=== PATIENT | male | born 1950 | race Caucasian/White ===

== ENCOUNTER → 2017-03-10 | Outpatient (CLI) | payer MEDICARE, BC | LOC: SL 15:13 | PROVIDERS: ATTEND Family Medicine | DX: G47.33 Obstructive sleep apnea (adult) (pediatric) (principal) ==

== ENCOUNTER → 2017-07-30 | Outpatient (CLI) | payer MEDICARE, BC ==
--- NOTE | 2017-07-31 15:28 | US ---
EXAM DESCRIPTION: Soft Tissue,Head/Neck CLINICAL HISTORY: 66 years Male, THYROID NODULE COMPARISON: None. FINDINGS: The right lobe of the thyroid is 4.4 x 2.1 x 1.8 cm and the left lobe is 5.1 x 1.9 x 2.4 cm with the isthmus 4 mm in thickness. On the right posteriorly in the mid thyroid is a wider than tall 9 x 7 x 7 mm moderately hypoechoic nodule with internal specular echoes. Just anterior and inferior to this nodule is a mildly hypoechoic wider than tall 1.0 x 0.8 x 0.8 cm nodule. Inferiorly there is a moderately hypoechoic wider than tall 10 x 8 x 8 mm nodule in the lower pole. On the left in the lower pole is a partially cystic partially solid wider than tall 1.6 x 1.1 x 1.3 cm nodule. A tiny 5 mm hypoechoic nodule in the mid thyroid is noted. Within the isthmus on the left is a hypoechoic 1.8 x 1.0 x 1.0 cm nodule. The most worrisome nodule is the posteriorly positioned right middle lobe nodule only 9 mm in maximal diameter but with significant decreased echogenicity and specular internal echoes suggesting possible small calcifications. If possible consider fine-needle aspiration of this very small nodule. Additionally the larger left-sided isthmus nodule is heterogeneous with very slightly indistinct margins and questionably one or two small calcifications. Biopsy of this larger 1.8 x 1.0 cm nodule also recommended. IMPRESSION: Multinodular thyroid with two nodules involving each lobe and a larger nodule involving the left side of the isthmus. The most worrisome 9 mm right lobe midpole posteriorly positioned nodule and the larger isthmus nodule on the left side represent the two most worrisome nodules and should be considered for fine-needle aspiration. Electronically signed by: Reno Robledo MD 07/31/2017 3:26 PM CDT
== END ==
LOC: US 14:34
PROVIDERS: ATTEND Family Medicine
DX: E04.1 Nontoxic single thyroid nodule (principal)

== ENCOUNTER → 2017-08-04 | Outpatient (CLI) | payer MEDICARE, BC | END | disposition home or self-care (01) | LOC: GMAB 11:09 | PROVIDERS: ATTEND Family Medicine | DX: R97.20 Elevated prostate specific antigen [PSA] (principal) ==

== ENCOUNTER → 2017-09-10 | Outpatient (CLI) | payer MEDICARE, BC ==
--- NOTE | 2017-09-10 13:21 | MRI ---
Procedure: MR LUMBAR SPINE WITHOUT IV CONTRAST Exam Date: 09/10/2017 12:00 AM CDT Ordering Provider: MANE MCDONALD Clinical Indication: DISC DEGENERATION Comparison: None Technique: Multiplanar, multisequence MR images of the lumbar spine were obtained. Findings: No evidence of vertebral body compression deformity or acute fracture. No scoliotic curvature. Spinal cord terminates at the T12-L1 and is normal in signal morphology. Cauda equina separate appropriately. T12-L1: Unremarkable. L1-L2: Unremarkable. L2-L3: Broad-based disc bulge. Mild facet arthrosis. No stenosis. L3-L4: Right greater than left moderate facet arthrosis with ligamentum flavum hypertrophy. Broad-based disc bulge. No spinal canal stenosis yet there is mild bilateral neural foraminal stenosis. L4-L5: Broad-based disc bulge with mild facet arthrosis. No spinal canal stenosis yet there is mild bilateral neural foraminal stenosis. L5-S1: Circumferential disc bulge with subchondral cysts noted within the posterior aspect of S1. No focal disc protrusion. No spinal canal stenosis yet there is severe bilateral neural foraminal stenosis. Prevertebral and paravertebral soft tissues are unremarkable. Impression: Multilevel/multifactorial lumbar spondylosis as outlined above. Greatest degree of stenosis is at L5-S1. Electronically signed by: Xavier Kaye MD 09/10/2017 1:20 PM CDT
== END | disposition home or self-care (01) ==
LOC: MRI 14:25
PROVIDERS: ATTEND Family Medicine
DX: M51.36 Other intervertebral disc degeneration, lumbar region (principal)

== ENCOUNTER → 2017-10-26 | Outpatient (CLI) | payer MEDICARE, BC | END | disposition home or self-care (01) | LOC: GMAB 10:38 | PROVIDERS: ATTEND Family Medicine | DX: E04.1 Nontoxic single thyroid nodule (principal) ==

== ENCOUNTER → 2017-11-02 | Outpatient (CLI) | payer MEDICARE, BC | END | disposition home or self-care (01) | LOC: GMAB 08:56 | PROVIDERS: ATTEND Family Medicine | DX: E04.1 Nontoxic single thyroid nodule (principal) ==

== ENCOUNTER → 2017-12-09 | Outpatient (CLI) | payer MEDICARE, BC | LOC: GMAB 11:15 | PROVIDERS: ATTEND Family Medicine | DX: C73 Malignant neoplasm of thyroid gland (principal); R29.898 Other symptoms and signs involving the musculoskeletal system; R06.02 Shortness of breath; R20.2 Paresthesia of skin ==

== ENCOUNTER → 2017-12-11 | Outpatient (CLI) | payer MEDICARE, BC | LOC: GMAB 13:39 | PROVIDERS: ATTEND Family Medicine | DX: C73 Malignant neoplasm of thyroid gland (principal); E89.0 Postprocedural hypothyroidism ==

== ENCOUNTER → 2018-01-05 | Outpatient (CLI) | payer MEDICARE, BC ==
--- NOTE | 2018-01-05 09:59 | RAD ---
EXAM DESCRIPTION: Knee,Right Complete CLINICAL HISTORY: 67 years, Male, PAIN IN RIGHT KNEE COMPARISON: None TECHNIQUE: 4 views of the right knee FINDINGS: No fracture or dislocation. Bones appear osteopenic with prominent trabecular pattern. Narrowed of medial and lateral compartments on frontal view, especially laterally. Lucency in the lateral femoral condyle is seen consistent with subchondral degenerative cyst formation. Sclerosis and eburnation of the medial tibial plateau is present. Lateral view shows normal position of the patella with narrowing of the patellofemoral joint. Positive posterior patellar spurring is seen with spurring of the anterior femoral trochlea. No suprapatellar knee joint effusion. Normal contour of quadriceps and patellar tendons. Lateral tilt of the patella is noted without dislocation on patellar sunrise view. Prominent medial and lateral patellar spurring is seen with prominent anterior medial femoral trochlear osteophyte. IMPRESSION: Degenerative osteoarthrosis of the right knee. Electronically signed by: Lasha Harris MD 01/05/2018 9:58 AM [employer]
--- NOTE | 2018-01-05 10:01 | RAD ---
EXAM DESCRIPTION: Pelvis CLINICAL HISTORY: 67 years Male, PAIN IN RIGHT HIP COMPARISON: None. TECHNIQUE: Frontal x-ray view of the pelvis and proximal femurs FINDINGS: Degenerative disc space narrowing is noted at L5-S1 with spurring. SI joints and pubic symphysis appear well-preserved. Mild narrowing of the inferomedial aspect of the hip joints is present. No fracture or dislocation of the hips. Proximal femurs appear intact. IMPRESSION: Negative for fracture or dislocation. Electronically signed by: Lasha Harris MD 01/05/2018 10:00 AM [facility]
== END ==
LOC: RAD 08:45
PROVIDERS: ATTEND Orthopaedic Surgery
DX: M25.561 Pain in right knee (principal); M25.551 Pain in right hip

== ENCOUNTER → 2018-04-08 | Outpatient (CLI) | payer MEDICARE, BC | LOC: GMAB 14:35 | PROVIDERS: ATTEND Family Medicine | DX: C73 Malignant neoplasm of thyroid gland (principal); E89.0 Postprocedural hypothyroidism ==

== ENCOUNTER → 2018-07-12 | Outpatient (CLI) | payer MEDICARE, BC | LOC: GMAE 10:53 | PROVIDERS: ATTEND Family Medicine | DX: R94.5 Abnormal results of liver function studies (principal); R97.20 Elevated prostate specific antigen [PSA] ==

== ENCOUNTER → 2018-07-20 | Outpatient (CLI) | payer MEDICARE, BC ==
--- NOTE | 2018-07-20 10:35 | US ---
EXAM DESCRIPTION: Liver: ULTRASOUND. CLINICAL HISTORY: ABNORMAL RESULTS OF LIVER FUNCTION STUDIES COMPARISON: None. TECHNIQUE: Transabdominal scannin-dimensional and Doppler modes. FINDINGS: Gallbladder: Echogenic object on the wall measuring 4.5 mm. Mobile with patient change in position. No calcified stones or sludge. No fluid around the gallbladder. No wall thickening. 2.3 mm. Non-tender with transducer pressure. Common bile duct: caliber 3.9 mm within normal limits. Liver: Increased echogenicity; contour liver capsule smooth where seen. No fluid around the liver. Intrahepatic biliary ducts normal caliber. Doppler hepatopedal flow portal vein. 1.0 cm. Long axis right lobe 19.6 Pancreas: normal size and echogenicity. Duct not seen. Right kidney: long axis measures 10.7 cm. Normal Echogenicity. 2.6 x 2.1 cm cyst mid kidney. Second cyst with septation measures 3.5 x 2.9 cm. Normal cortical thickness. No hydronephrosis IMPRESSION: 1. Nonmobile polyp on the wall of the gallbladder. No stones or sludge. No wall thickening or fluid. Nontender. Normal caliber of the common bile duct. 2. Steatosis of the liver with normal ducts and vascularity. Smooth capsule with no fluid. Normal ultrasound of the pancreas. 3. 2 Cysts in the right kidney otherwise unremarkable. Electronically signed by: Manuelito Ibarra MD 07/20/2018 10:33 AM CDT
== END ==
LOC: US 09:00
PROVIDERS: ATTEND Family Medicine
DX: R94.5 Abnormal results of liver function studies (principal); K82.4 Cholesterolosis of gallbladder; K76.0 Fatty (change of) liver, not elsewhere classified; N28.1 Cyst of kidney, acquired

== ENCOUNTER → 2018-10-05 | Outpatient (CLI) | payer MEDICARE, BC | LOC: GMAE 14:28 | PROVIDERS: ATTEND Family Medicine | DX: C73 Malignant neoplasm of thyroid gland (principal); E89.0 Postprocedural hypothyroidism; R97.20 Elevated prostate specific antigen [PSA] ==

== ENCOUNTER → 2018-10-25 | Outpatient (CLI) | payer MEDICARE, BC ==
--- NOTE | 2018-10-25 08:53 | RAD ---
EXAM DESCRIPTION: Fingers,Left CLINICAL HISTORY: 67 years Male, PAIN IN LEFT FINGER RING DIGIT COMPARISON: None. FINDINGS: Three x-rays views of the left fourth digit show mild narrowing of the DIP and PIP joints. No fracture. No dislocation. Normal bony mineralization. No radiopaque foreign body. IMPRESSION: Negative for fracture. Electronically signed by: Lasha Harris MD 10/25/2018 8:51 AM [facility]
--- NOTE | 2018-10-25 08:56 | RAD ---
EXAM DESCRIPTION: Hand,Left 3 Views CLINICAL HISTORY: PAIN IN LEFT HAND COMPARISON: None Available. TECHNIQUE: AP, LATERAL, AND OBLIQUE FINDINGS: Three-view left hand shows no fracture or dislocation. Deformity of the fourth metacarpal is consistent with an old healed fracture. Mild degenerative narrowing of the DIP more than PIP joints. Moderate degenerative changes at the lateral carpus especially first carpal metacarpal joint. Flattened appearance of the head of the first metacarpal is seen with degenerative changes at the first metacarpal phalangeal joint and mild degenerative spurring of the interphalangeal joint of the thumb. No radiopaque foreign body. There is no radiopaque foreign body. IMPRESSION: Negative for fracture or dislocation. Electronically signed by: Lasha Harris MD 10/25/2018 8:54 AM [facility]
== END ==
LOC: RAD 07:54
PROVIDERS: ATTEND Orthopaedic Surgery
DX: M79.645 Pain in left finger(s) (principal); M79.642 Pain in left hand

== ENCOUNTER → 2019-09-27 | Outpatient (CLI) | payer MEDICARE, BC | LOC: GMAE 10:41 | PROVIDERS: ATTEND Family Medicine | DX: E03.9 Hypothyroidism, unspecified (principal); R97.20 Elevated prostate specific antigen [PSA]; I10 Essential (primary) hypertension; E78.2 Mixed hyperlipidemia ==

== ENCOUNTER → 2020-03-16 | Outpatient (CLI) | payer MEDICARE, BC | LOC: GMAE 12:12 | PROVIDERS: ATTEND Family Medicine | DX: M25.541 Pain in joints of right hand (principal); E03.8 Other specified hypothyroidism ==

== ENCOUNTER → 2020-03-26 | Outpatient (CLI) | payer MEDICARE, BC | LOC: GMAE 11:26 | PROVIDERS: ATTEND Family Medicine | DX: M25.542 Pain in joints of left hand (principal) ==

== ENCOUNTER → 2020-04-23 | Outpatient (CLI) | payer MEDICARE, BC ==
--- NOTE | 2020-04-23 08:55 | RAD ---
EXAM DESCRIPTION: Knee,Right Complete CLINICAL HISTORY: RT KNEE PAIN COMPARISON: None FINDINGS: 5 views of the right knee including standing neutral and flexion views. The lateral joint space loss is present with subchondral sclerosis, lucency and moderate size marginal osteophyte formations. Similar advanced joint space loss with subchondral sclerosis and cystlike formation is seen within the patellofemoral joint. Large marginal osteophyte formations of the patellofemoral joint. Bone density appears within normal limits. No acute fracture is demonstrated. Vascular calcifications are present. IMPRESSION: End-stage osteoarthritis of the right knee. Electronically signed by: Manuel Hutchinson MD 04/23/2020 8:54 AM CDT
--- NOTE | 2020-04-23 08:56 | RAD ---
EXAM DESCRIPTION: Pelvis CLINICAL HISTORY: HIP PAIN COMPARISON: 05 January 2018 TECHNIQUE: AP pelvis FINDINGS: Degenerative changes are observed in the lower lumbar spine. No pelvic or hip fracturing is detected. Phleboliths are observed in the left side the pelvis. IMPRESSION: Mild degenerative changes are observed. No fracturing is detected. Electronically signed by: Vitaliy Garg MD 04/23/2020 8:55 AM CDT
== END ==
LOC: RAD 07:44
PROVIDERS: ATTEND Orthopaedic Surgery
DX: M47.896 Other spondylosis, lumbar region (principal); M17.11 Unilateral primary osteoarthritis, right knee

== ENCOUNTER → 2020-09-23 | Outpatient (CLI) | payer MEDICARE, BC | LOC: GMAF 16:01 | PROVIDERS: ATTEND Nurse Practitioner Family | DX: J06.9 Acute upper respiratory infection, unspecified (principal); R06.00 Dyspnea, unspecified; R71.8 Other abnormality of red blood cells; R09.02 Hypoxemia ==

== ENCOUNTER 2020-09-25 08:20 | Emergency (ER) | payer MEDICARE, BC ==
--- NOTE | 2020-09-25 08:24 | ED.PDOC ---
History of Present Illness - General Time Seen by Provider: 09/25/20 08:22 Source: patient - History of Present Illness Initial Comments: 69 yo male with PMH of HTN who presents with chief complaint of vomiting and diarrhea. Reports onset of illness about 6 days ago and was diagnosed with COVID-19 2 days ago. Reports his was also recently ill with similar symptoms and also diagnosed with COVID-19. Patient reports mild illness last week with symptoms of body aches and generalized weakness and decreased appetite. Reports onset of vomiting and diarrhea yesterday. States that he had 3 episodes of nonbloody nonbilious emesis and 3 episodes of watery diarrhea yesterday. Additionally he has had 1 more episode of diarrhea this morning. Reports poor appetite and decreased p.o. intake. States he only had some fruit and juice yesterday. Reports symptoms as moderate severity. He has been taking Tylenol at home with little relief. Additionally reports subjective fevers. Denies chest pain, cough, dyspnea, abdominal pain, urinary symptoms, leg swelling, headache, sore throat. PCP is Dr. Lay. Allergies/Adverse Reactions: Allergies Penicillins Allergy (Verified 10/15/15 09:41) Home Medications: Ambulatory Orders Aspirin [Aspirin Adult Low Dose] 81 mg PO DAILY 10/15/15 Atorvastatin Calcium [Lipitor] 20 mg PO DAILY 10/15/15 Losartan Potassium & Hydrochlo [Losartan Potassium/Hydroc 100-12.5 mg] 1 tab PO DAILY 10/15/15 Meloxicam [Mobic] 15 mg PO DAILY 10/15/15 Azithromycin Tab [Zithromax Tab] 250 mg PO DAILY 4 Days #4 tab 09/25/20 Levothyroxine Sodium [Synthroid] 150 mcg PO DAILY 09/25/20 Levothyroxine Sodium [Synthroid] 175 mcg PO TUTH 09/25/20 Ondansetron Odt [Zofran ODT] 8 mg PO Q8H PRN 5 Days #10 tab 09/25/20 Review of Systems - Review of Systems Review of Systems: 09/25/20 08:39 as per HPI All other Systems: Reviewed and Negative Past Medical History (General) - Patient Medical History Hx Congestive Heart Failure: No Hx Hypertension: Yes Hx Diabetes: No Hx MRSA: No - Social History Hx Alcohol Use: No Hx Substance Use: No Hx Physical Abuse: No Hx Emotional Abuse: No Family Medical History - Family History Mother Family History: Unknown Physical Exam - Physical Exam General Appearance: Alert, Comfortable, No apparent distress Eye Exam: bilateral normal Ears, Nose, Throat: hearing grossly normal, normal ENT inspection, normal pharynx Neck: non-tender, full range of motion, supple, normal inspection Respiratory: lungs clear, normal breath sounds, no respiratory distress, no accessory muscle use Cardiovascular/Chest: normal peripheral pulses, regular rate, rhythm, no edema, no gallop, no JVD, no murmur Peripheral Pulses: radial,right: 2+, radial,left: 2+ Gastrointestinal/Abdominal: normal bowel sounds, non tender, soft, no organomegaly Back Exam: normal inspection, no CVA tenderness, no vertebral tenderness Extremity: normal range of motion, non-tender, normal inspection, no pedal edema, no calf tenderness, normal capillary refill 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 Consider also other viral gastroenteritis, colitis, pancreatitis, dehydration, TRUDY, UTI, metabolic derangement, PNA, ACS, other -pt stable, afebrile, vitals normal on arrival, pt NAD, exam largely unremarkable -obtain COVID lab panel, cardiac work-up -place PIV, 1 L LR bolus, Zofran 4 mg IV 09/25/20 09:44 -Labs pertinent for: serum WBC 9,500 with 72% segs, 19% lymphs, H/H 17.7/51, PLTs 149,000, BUN 25, Cr 1.1, T bili 2.0 (direct 0.4, indirect 1.6), alk phos 62, AST/ALT wnl, lipase 31, trop 0.06, BNP 207, D-dimer 297. -CXR reveals LLL infiltrate per my read. -Pt remains stable, vitals wnl, SpO2 95% RA. Pt reports feeling slightly better with IV fluids. Denies any chest pain or dyspnea. Still no abdominal pain or ttp on exam. Discussed all findings with pt - suspect c/w COVID-19 PNA & acute gastroenteritis. Trop upper limits of normal but no CP - will plan to repeat EKG & trop in ED. T bili elevated but suspect 2/2 acute viral infection. Acute gallbladder pathology appears highly unlikely. Discussed this with pt and that he may need repeat lab testing as outpatient and possible US of liver/gallblwayne r. -For COVID-19 PNA, will give Azithromycin 500 mg PO in the ED. Anticipate dc to home with close outpatient f/u. 09/25/20 10:55 -Pt reports he is actually feeling much better. Remains stable, SpO2 96% on RA. Still no chest pain, dyspnea, abd pain. Repeat trop 0.05, repeat EKG unchanged. -Discussed diagnosis of COVID-19 pneumonia, gastroenteritis. Will prescribe Z- Omid x5 days, first dose here. As needed Zofran prescription given as well. Considered steroids but will withhold for now as no clear benefit with outpatient treatment of COVID-19 patients. -Discharge home in good condition, advised close follow-up with PCP. Advised he will need to have repeat bilirubin lab drawn once he is recovered from acute illness to ensure that it is coming back down to normal. Return warnings d iscussed at length. Emeka Madrigal MD Billing #[id number] 09/25/20 08:30 EKG STAT Pulse Ox, Continuous Monitoring STAT 09/25/20 10:00 EKG STAT 09/26/20 08:30 Pulse Ox, Continuous Monitoring STAT 09/27/20 08:30 Pulse Ox, Continuous Monitoring STAT Laboratory Results - last 24 hr 09/24/20 09/25/20 09/25/20 16:00 08:35 08:35 WBC 9.5 RBC 5.66 Hgb 17.7 Hct 51.3 MCV 90.6 MCH 31.3 H MCHC 34.6 RDW 14.1 Plt Count 149 MPV 9.3 Absolute Neuts (auto) 6.90 H Absolute Lymphs (auto) 1.80 Absolute Monos (auto) 0.80 Absolute Eos (auto) 0.00 Absolute Basos (auto) 0.00 Neutrophils % 72.6 Lymphocytes % 19.2 L Monocytes % 8.1 Eosinophils % 0.0 L Basophils % 0.1 PTT (SP) 29.2 D-Dimer, Quantitative 297.0 Sodium Potassium Chloride Carbon Dioxide Anion Gap BUN Creatinine BUN/Creatinine Ratio Random Glucose Serum Osmolality Calcium Magnesium Total Bilirubin Direct Bilirubin Indirect Bilirubin AST ALT Alkaline Phosphatase LD Total Creatine Kinase Troponin I C-Reactive Protein B-Natriuretic Peptide Serum Total Protein Albumin Globulin Albumin/Globulin Ratio Lipase Urine Color Urine Appearance Urine pH Ur Specific [place] Urine Protein Urine Glucose (UA) Urine Ketones Urine Blood Urine Nitrite Urine Bilirubin Urine Urobilinogen Ur Leukocyte Esterase Urine RBC Urine WBC Ur Epithelial Cells Amorphous Sediment Urine Bacteria Hyaline Casts Urine Mucus IgG Cancelled IgM Cancelled Cycl Citrul Peptide IgG Cancelled 09/25/20 09/25/20 09/25/20 08:35 08:35 08:35 WBC RBC Hgb Hct MCV MCH MCHC RDW Plt Count MPV Absolute Neuts (auto) Absolute Lymphs (auto) Absolute Monos (auto) Absolute Eos (auto) Absolute Basos (auto) Neutrophils % Lymphocytes % Monocytes % Eosinophils % Basophils % PTT (SP) D-Dimer, Quantitative Sodium 137 Potassium 3.8 Chloride 104 Carbon Dioxide 20 L Anion Gap 16.8 BUN 25 H D Creatinine 1.13 BUN/Creatinine Ratio 22.1 H Random Glucose 116 H Serum Osmolality 279.2 Calcium 8.4 Magnesium 2.0 Total Bilirubin 2.0 H D Direct Bilirubin Indirect Bilirubin AST 28 ALT 34 Alkaline Phosphatase 62 LD Total 164 Creatine Kinase 92 Troponin I 0.06 H C-Reactive Protein 5.0 H D B-Natriuretic Peptide 207.0 H* Serum Total Protein 7.7 Albumin 4.2 Globulin 3.5 Albumin/Globulin Ratio 1.2 Lipase 31 Urine Color Urine Appearance Urine pH Ur Specific [place] Urine Protein Urine Glucose (UA) Urine Ketones Urine Blood Urine Nitrite Urine Bilirubin Urine Urobilinogen Ur Leukocyte Esterase Urine RBC Urine WBC Ur Epithelial Cells Amorphous Sediment Urine Bacteria Hyaline Casts Urine Mucus IgG IgM Cycl Citrul Peptide IgG 09/25/20 09/25/20 09/25/20 08:35 09:40 10:10 WBC RBC Hgb Hct MCV MCH MCHC RDW Plt Count MPV Absolute Neuts (auto) Absolute Lymphs (auto) Absolute Monos (auto) Absolute Eos (auto) Absolute Basos (auto) Neutrophils % Lymphocytes % Monocytes % Eosinophils % Basophils % PTT (SP) D-Dimer, Quantitative Sodium Potassium Chloride Carbon Dioxide Anion Gap BUN Creatinine BUN/Creatinine Ratio Random Glucose Serum Osmolality Calcium Magnesium Total Bilirubin 2.0 H Direct Bilirubin 0.4 H Indirect Bilirubin 1.6 H AST ALT Alkaline Phosphatase LD Total Creatine Kinase Troponin I 0.05 C-Reactive Protein B-Natriuretic Peptide Serum Total Protein Albumin Globulin Albumin/Globulin Ratio Lipase Urine Color Gi[place]anna Urine Appearance Clear Urine pH 5.5 Ur Specific [place] 1.025 Urine Protein 100 H Urine Glucose (UA) Negative Urine Ketones 15 H Urine Blood Trace-intact H Urine Nitrite Negative Urine Bilirubin Small H Urine Urobilinogen 0.2 Ur Leukocyte Esterase Negative Urine RBC 1-3 Urine WBC 5-10 H Ur Epithelial Cells 0-1 Amorphous Sediment 2+ Urine Bacteria Rare Hyaline Casts 0-1 Urine Mucus Moderate IgG IgM Cycl Citrul Peptide IgG - EKG/XRAY/CT EKG: Sinus - Normal sinus rhythm with occasional premature atrial complexes, heart rate 85, no ST elevations noted, no Q waves noted, axis normal, borderline prolonged QT interval noted, no prior EKG for comparison. XRAY: chest - Per my read, BL peripheral groundglass opacities noted, worse on the left, c/w COVID-19 pneumonitis - Additional EKG/XRAY/Consults EKG #2: Unchanged from - initial Departure - Departure Clinical Impression: Gastroenteritis, Pneumonia due to COVID-19 virus, COVID-19 Time of Disposition: 10:52 Disposition: Discharge to Home or Self Care Condition: Fair Departure Forms: ED Discharge - Pt. Copy, Patient Portal Self Enrollment Instructions: Viral Gastroenteritis, Adult (DC), Coronavirus Disease 2019 (COVID-19) Diet: resume usual diet Activity: increase activity as tolerated Referrals: ALTAGRACIA LAY MD [Primary Care Provider] - 1-2 Weeks Prescriptions: Azithromycin Tab [Zithromax Tab] 250 mg PO DAILY 4 Days #4 tab Ondansetron Odt [Zofran ODT] 8 mg PO Q8H PRN 5 Days #10 tab PRN Reason: Nausea Home Medications: Ambulatory Orders Aspirin [Aspirin Adult Low Dose] 81 mg PO DAILY 10/15/15 Atorvastatin Calcium [Lipitor] 20 mg PO DAILY 10/15/15 Losartan Potassium & Hydrochlo [Losartan Potassium/Hydroc 100-12.5 mg] 1 tab PO DAILY 10/15/15 Meloxicam [Mobic] 15 mg PO DAILY 10/15/15 Azithromycin Tab [Zithromax Tab] 250 mg PO DAILY 4 Days #4 tab 09/25/20 Levothyroxine Sodium [Synthroid] 150 mcg PO DAILY 09/25/20 Levothyroxine Sodium [Synthroid] 175 mcg PO TUTH 11/10/20 Ondansetron Odt [Zofran ODT] 8 mg PO Q8H PRN 5 Days #10 tab 09/25/20 Additional Instructions: Remain well-hydrated and gradually advance your diet and activity level as tolerated. Take the antibiotics as directed. You may take the Zofran as directed for nausea. Return to the ED if you develop concerning symptoms such as chest pain, worsening shortness of breath, worsening abdominal pain, intractable nausea and vomiting, large volume or frequent (greater than 10 episodes per day) diarrhea, bloody vomiting or diarrhea, etc. Follow-up with your primary care physician is recommended in the next 1 to 2 weeks for repeat evaluation or sooner as needed. You were also noted to have slightly elevated bilirubin level on labs this visit. This is likely increased due to acute illness but will need to be rechecked by your doctor in a couple weeks in the clinic once you are well to ensure it is improving. You will need to continue to self quarantine for a minimum of 10-14 days after your positive COVID-19 test.
[2020-09-25] MEDS ORDERED: ONDANSETRON INJ 4 MG/2 ML VIAL IV ONE (08:36)
[2020-09-25] MEDS ORDERED: LACTATED RINGERS 1,000 ML IVS ONE (08:36)
--- NOTE | 2020-09-25 08:49 | RAD ---
EXAM DESCRIPTION: Chest,1 View CLINICAL HISTORY: dyspnea, COVID-19+ COMPARISON: 17 October 2015 TECHNIQUE: AP portable chest FINDINGS: Mild interstitial infiltrate is observed at the left lung base. The heart is within range of normal. No pleural fluid is seen. IMPRESSION: Interstitial infiltrate is observed at the left lung base. Electronically signed by: Vitaliy Garg MD 09/25/2020 8:48 AM TEAM FACILITATOR
[2020-09-25 09:36] VITALS: O2SAT 94
[2020-09-25] MEDS ORDERED: AZITHROMYCIN 250 MG TAB PO ONE (10:51)
[2020-09-25 11:14] VITALS: BP 132/80; TEMP 98.5
== END 2020-09-25 11:13 | disposition home or self-care (01) ==
LOC: ER 08:20
DX: U07.1 COVID-19 (principal); J12.89 Other viral pneumonia; K21.9 Gastro-esophageal reflux disease without esophagitis; I49.1 Atrial premature depolarization; I10 Essential (primary) hypertension; Z79.899 Other long term (current) drug therapy; Z79.82 Long term (current) use of aspirin
CPT/HCPCS: 36415; 71045; 80053; 81001; 82247; 82248; 82550; 83615; 83690; 83735; 83880; 84484; 85025; 85379; 85730; 86140; 93005; J2405; J7120; Q0144

== ENCOUNTER → 2020-10-31 | Outpatient (CLI) | payer MEDICARE, BC | LOC: GMAE 14:32 | PROVIDERS: ATTEND Family Medicine | DX: Z12.5 Encounter for screening for malignant neoplasm of prostate (principal); E03.8 Other specified hypothyroidism; I10 Essential (primary) hypertension | CPT/HCPCS: 84439; 84443; 84481; G0103 ==